=== PATIENT | male | born 1990 | race Caucasian/White ===

== ENCOUNTER → 2016-07-02 12:49 | Emergency (ER) | payer BC | END | disposition left against medical advice (07) | LOC: UCEAST 12:49 | DX: M79.646 Pain in unspecified finger(s) (principal); Z53.21 Procedure and treatment not carried out due to patient leaving prior to being seen by health care provider ==

== ENCOUNTER 2016-07-02 17:35 | Emergency (ER) | payer BC ==
[2016-07-02 18:11] VITALS: BP 133/57
--- NOTE | 2016-07-02 18:29 | UC ---
Upper Extremity HPI - HPI Summary HPI Summary: Patient caught his left thumb in a fence grate. The distal part of his thumb was "stuck," in a hyperflexed position. The patient had to manually lift the end of his finger and "heard and felt it pop". Area is swollen and bruised, limited ROM in the left first finger, rated as 1/10 throbbing pain at rest, 8/ 10 throbbing pain with movement or palpation. - History of Current Complaint Chief Complaint: UCUpperExtremity Stated Complaint: THUMB INJURY Time Seen by Provider: 07/02/16 18:06 Hx Obtained From: Patient ?: No Onset/Duration: Sudden Onset Severity Initially: Severe Severity Currently: Moderate Pain Intensity: 8 Pain Scale Used: 0-10 Numeric Character: Throbbing Aggravating Factor(s): Movement, Lifting, Flexion, Extension Alleviating Factor(s): Ice, Rest Associated Signs And Symptoms: Positive: Swelling, Bruising - Risk Factors Non-Orthopedic Risk Factor: Negative DVT Risk Factors: Negative Septic Arthritis Risk Factor: Negative Compartment Syndrome Risk Factors: Pain - Allergies/Home Medications Allergies/Adverse Reactions: Allergies Allergy/AdvReac Type Severity Reaction Status Date / Time No Known Allergies Allergy Verified 12/13/14 16:57 PMH/Surg Hx/FS Hx/Imm Hx Previously Healthy: Yes Endocrine History Of: Denies: Diabetes, Thyroid Disease Cardiovascular History Of: Denies: Cardiac Disorders, Hypertension Respiratory History Of: Denies: COPD, Asthma GI/ History Of: Denies: Ulcer Neurological History Of: Denies: Seizures, Migraine Psychological History Of: Denies: Anxiety, Depression, Bipolar Disorder - Surgical History Surgical History: Yes Surgery Procedure, Year, and Place: Right leg I&D abscess (general anesthesia) - Family History Known Family History: Positive: None - Social History Occupation: Employed Full-time Alcohol Use: Occasionally Substance Use Type: Marijuana Substance Use Comment - Amount & Last Used: a few times a month Smoking Status (MU): Light Every Day Tobacco Smoker Type: Cigarettes Amount Used/How Often: 1/2 PPW Length of Time of Smoking/Using Tobacco: 1 year Have You Smoked in the Last Year: Yes Review of Systems Constitutional: Negative Skin: Bruising Eyes: Negative ENT: Negative Respiratory: Negative Cardiovascular: Negative Gastrointestinal: Negative Genitourinary: Negative Motor: Negative Neurovascular: Negative Musculoskeletal: Decreased ROM - left first finger, Edema - left first finger Neurological: Negative Psychological: Negative All Other Systems Reviewed And Are Negative: Yes Physical Exam Triage Information Reviewed: Yes Appearance: Well-Appearing Vital Signs: Initial Vital Signs Temp 98.0 F 07/02/16 18:00 Pulse 49 07/02/16 18:00 Resp 18 07/02/16 18:00 BP 133/57 07/02/16 18:00 Pulse Ox 97 07/02/16 18:00 Vital Signs Reviewed: Yes Eye Exam: Normal Eyes: Positive: Conjunctiva Clear ENT: Positive: Normal ENT inspection, Pharynx normal, TMs normal Dental Exam: Normal Neck: Positive: Supple, Nontender, No Lymphadenopathy Respiratory: Positive: Chest non-tender, Lungs clear, Normal breath sounds Cardiovascular: Positive: RRR, No Murmur, Pulses Normal Abdomen Description: Positive: Nontender, No Organomegaly, Soft Bowel Sounds: Positive: Present Musculoskeletal Exam: Normal Musculoskeletal: Positive: Strength Intact, ROM Limited @ - left first finger, Edema @ - left first finger Neurological: Positive: Alert Psychological Exam: Normal Skin: Positive: Other - Edema and bruising left first finger Upper Extremity Course/Dx - Differential Dx/Diagnosis Provider Diagnoses: Possible L thumb dislocation at IP joint, reduced G[employer]. L Thumb sprain Discharge - Discharge Plan Condition: Stable Disposition: HOME Patient Education Materials: Finger Sprain (ED) Referrals: Quinn Castro MD [Medical Doctor] - No Primary Care Phys,NOPCP [Primary Care Provider] - If Needed Additional Instructions: Call your doctor or return for examination if pain becomes severe, or if numbness or severe discoloration occurs. No fracture was seen on your X-rays. However, the physician's exam leaves some suspicion.
--- NOTE | 2016-07-02 18:48 | RAD ---
INDICATION: Left thumb injury COMPARISON: None TECHNIQUE: AP, lateral, and oblique views were obtained. FINDINGS: The bony structures, joint spaces, and soft tissues are normal for age. IMPRESSION: NEGATIVE EXAMINATION.
== END 2016-07-02 19:01 | disposition home or self-care (01) ==
LOC: UCEAST 17:35
DX: S63.602A Unspecified sprain of left thumb, initial encounter (principal); X50.9XXA Other and unspecified overexertion or strenuous movements or postures, initial encounter; Y93.9 Activity, unspecified; Y92.9 Unspecified place or not applicable; F17.210 Nicotine dependence, cigarettes, uncomplicated
CPT/HCPCS: 99212; G0463